=== PATIENT | female | born 1980 | race Two or more races ===

== ENCOUNTER 2022-02-18 11:16 | Inpatient (IN) | payer BC, OTHER ==
[~2022-02-18] VITALS: Ht 162.6 cm; Wt 74.5 kg
[2022-02-18 12:35] LABS: Basophils # (auto) 0 10 ^3/uL (0-0.2); Basophils % (auto) 0.5 % (0.0-2.0); Eosinophils # (auto) 0 10 ^3/uL (0-0.8); Eosinophils % (auto) 0.6 % (0.0-7.0); Hematocrit 36.6 % (36.0-46.0); Hemoglobin 12.4 g/dL (12.2-16.2); Lymphocytes # (auto) 0.7 10 ^3/uL (0.4-5.4); Lymphocytes % (auto) 14.6 % (10.0-50.0); Mean Corpuscular Hemoglobin 33.2 pg (28.0-32.0); Mean Corpuscular Hgb Conc. 33.9 g/dL (32.0-36.0); Mean Corpuscular Volume 97.9 fL (80.0-100.0); Monocytes # (auto) 0.3 10 ^3/uL (0-1.3); Monocytes % (auto) 6.7 % (0.0-12.0); Neutrophils # (auto) 3.7 10 ^3/uL (1.6-8.6); Neutrophils % (auto) 77.6 % (37.0-80.0); Red Blood Cells 3.74 10^6/uL (4.0-5.20); Red Cell Distribution Width 13.7 % (11.8-14.3); White Blood Cell 4.8 10^3/uL (4.4-10.8)
[2022-02-18 12:41] LABS: Albumin 3.7 g/dL (3.4-5.0); BUN/Creatinine Ratio 11.2; Calcium 8.2 mg/dL (8.5-10.1); Magnesium 2.2 mg/dL (1.6-2.6)
[2022-02-18 12:50] LABS: Bilirubin, Total 0.6 mg/dL (0.2-1.0); Total Protein 6.9 g/dL (6.4-8.2)
[2022-02-18 12:54] LABS: Potassium 4.1 mmol/L (3.5-5.1)
[2022-02-18 13:01] LABS: INR 1.1 (0.9-1.15); Partial Thromboplastin Time 29.1 sec (23.6-33.0)
[2022-02-18 13:53] LABS: Alcohol, Urine < 3.0 mg/dL (0-10); Amphetamine Screen, Urine NEGATIVE (NEGATIVE); Barbiturate Scree,Urine NEGATIVE (NEGATIVE); Benzodiazephine Screen, Urine POSITIVE (NEGATIVE); Cannabinoid Screen, Urine NEGATIVE (NEGATIVE); Cocaine Screen, Urine NEGATIVE (NEGATIVE); Opiate Scree,Urine NEGATIVE (NEGATIVE); Phencyclidine Screen, Urine NEGATIVE (NEGATIVE)
[2022-02-18] MEDS ORDERED: LORazepam 2MG/ML-1ML VIAL ONE (15:12)
[2022-02-18] MEDS ORDERED: LORazepam 2MG/ML-1ML VIAL IV ONE ×2 (15:13→15:30)
[2022-02-18] MEDS ORDERED: MORPHINE SULFATE INJECTION 2 MG/ML SYRG IV PRN ×2 (15:15→16:00)
[2022-02-18] MEDS ORDERED: NITROGLYCERIN 0.4 MG SL TAB SL PRN (15:15)
[2022-02-18] MEDS ORDERED: diphenhdrAMINE HCL 50 MG/1 ML VL IV ONE (15:30)
[2022-02-18] MEDS ORDERED: FLECAINIDE ACETATE 50 MG TAB PO ONE (15:45)
[2022-02-18] MEDS ORDERED: ALPRAZolam 0.5 MG TAB PO ONE (15:45)
[2022-02-18] MEDS ORDERED: LACTATED RINGER'S 1,000 ML IV ONE (15:45)
[2022-02-18] MEDS ORDERED: PANTOPRAZOLE 40 MG/10 ML VIAL INJ IV ONE (16:00)
[2022-02-18] MEDS ORDERED: hydrALAZINE HCL 20 MG/ML VL IV PRN (16:00)
[2022-02-18] MEDS ORDERED: LORazepam 0.5 MG TAB PO PRN (16:00)
[2022-02-18] MEDS ORDERED: FOLIC ACID 1 MG TAB PO ONE (16:00)
[2022-02-18] MEDS ORDERED: FERROUS SULFATE 325mg EC TAB PO ONE (16:00)
[2022-02-18] MEDS ORDERED: DOCUSATE SOD 100 MG CAP PO PRN (16:00)
[2022-02-18] MEDS ORDERED: IPRATROPIUM BROM 0.5 MG/2.5ML INH SOL NEB ONE (16:00)
[2022-02-18] MEDS ORDERED: HYDROcodone-ACET 5/325MG TAB PO ONE (16:00)
[2022-02-18] MEDS ORDERED: SUCRALFATE 1 GM/10 ML ORAL SUSP PO ONE (16:00)
[2022-02-18] MEDS ORDERED: MULTIPLE VITAMINS W/ MINERALS TAB PO ONE (16:00)
[2022-02-18] MEDS ORDERED: LACTULOSE 20Gm/30ML SOLN PO PRN (16:00)
[2022-02-18] MEDS ORDERED: ONDANSETRON HCL 4 MG/2 ML VIAL IV PRN (16:00)
[2022-02-18] MEDS ORDERED: ENOXAPARIN SOD 80 MG/0.8ML SYRINGE SC ONE (16:30)
[2022-02-18] MEDS: SODIUM CHLORIDE 0.9% 1,000 ML IV SCH (17:20)
[2022-02-18 18:00] VITALS: BP 128/79
[2022-02-18] MEDS ORDERED: IPRATROPIUM BROM 0.5 MG/2.5ML INH SOL NEB SCH (18:00)
[2022-02-18 19:30] LABS: Magnesium 2.3 mg/dL (1.6-2.6); Phosphorus 2.4 mg/dL (2.5-4.90)
[2022-02-18] MEDS: SUCRALFATE 1 GM/10 ML ORAL SUSP PO SCH (21:36)
[2022-02-18] MEDS: POTASSIUM CHL 20 Meq TABLET PO SCH (21:36)
[2022-02-18] MEDS: ENOXAPARIN SOD 80 MG/0.8ML SYRINGE SC SCH (21:37)
[2022-02-18] MEDS: ATORVASTATIN 20 MG TAB PO SCH (21:37)
[2022-02-18 22:00] VITALS: BP 107/65
[2022-02-19] VITALS (7 sets, daily range): BP systolic 92–101; BP diastolic 46–65
[2022-02-19 06:40] LABS: Basophils # (auto) 0 10 ^3/uL (0-0.2); Basophils % (auto) 1.1 % (0.0-2.0); Eosinophils # (auto) 0 10 ^3/uL (0-0.8); Eosinophils % (auto) 1.1 % (0.0-7.0); Hematocrit 33.8 % (36.0-46.0); Hemoglobin 11.8 g/dL (12.2-16.2); Lymphocytes # (auto) 1.6 10 ^3/uL (0.4-5.4); Lymphocytes % (auto) 49.6 % (10.0-50.0); Mean Corpuscular Hemoglobin 33.9 pg (28.0-32.0); Mean Corpuscular Hgb Conc. 34.9 g/dL (32.0-36.0); Mean Corpuscular Volume 97.1 fL (80.0-100.0); Monocytes # (auto) 0.3 10 ^3/uL (0-1.3); Monocytes % (auto) 10.5 % (0.0-12.0); Neutrophils # (auto) 1.2 10 ^3/uL (1.6-8.6); Neutrophils % (auto) 37.7 % (37.0-80.0); Nucleated Red Blood Cells % 0.1 %; Red Blood Cells 3.48 10^6/uL (4.0-5.20); Red Cell Distribution Width 13.8 % (11.8-14.3); White Blood Cell 3.1 10^3/uL (4.4-10.8)
[2022-02-19] MEDS: SUCRALFATE 1 GM/10 ML ORAL SUSP PO SCH ×4 (07:21→22:29)
[2022-02-19 07:22] LABS: Albumin 3.1 g/dL (3.4-5.0); BUN/Creatinine Ratio 12.3; Bilirubin, Total 0.7 mg/dL (0.2-1.0); CRP High Sensitivity 0.05 mg/dL (< 0.3); Calcium 7.7 mg/dL (8.5-10.1); Magnesium 2.4 mg/dL (1.6-2.6); Phosphorus 2.9 mg/dL (2.5-4.90); Total Protein 6.2 g/dL (6.4-8.2); Uric Acid 3.8 mg/dL (2.6-6.0)
[2022-02-19 07:26] LABS: INR 1.13 (0.9-1.15); Partial Thromboplastin Time 36.3 sec (23.6-33.0)
[2022-02-19] MEDS: FERROUS SULFATE 325mg EC TAB PO SCH ×3 (08:00→17:05)
[2022-02-19] MEDS: SODIUM CHLORIDE 0.9% 1,000 ML IV SCH ×2 (08:41→12:33)
[2022-02-19] MEDS: PANTOPRAZOLE 40 MG/10 ML VIAL INJ IV SCH (08:41)
[2022-02-19] MEDS: POTASSIUM CHL 20 Meq TABLET PO SCH ×2 (08:42→22:30)
[2022-02-19] MEDS: ASPirin 81 mg TAB PO SCH (08:42)
[2022-02-19] MEDS: CHOLECALCIFEROL (VITD3) 2,000 UNIT CAP/TAB PO SCH (08:43)
[2022-02-19] MEDS: CYANOCOBALAMIN 500 MCG TAB PO SCH (08:43)
[2022-02-19] MEDS: MULTIPLE VITAMINS W/ MINERALS TAB PO SCH (08:43)
[2022-02-19] MEDS: ENOXAPARIN SOD 80 MG/0.8ML SYRINGE SC SCH ×2 (08:44→22:33)
[2022-02-19] MEDS: FOLIC ACID 1 MG TAB PO SCH (08:47)
[2022-02-19] MEDS: LORazepam 2MG/ML-1ML VIAL IV PRN ×2 (09:48→22:33)
[2022-02-19] MEDS ORDERED: FLECAINIDE ACETATE 50 MG TAB PO SCH (10:00)
[2022-02-19] MEDS ORDERED: IPRATROPIUM BROM 0.5 MG/2.5ML INH SOL NEB PRN (10:45)
[2022-02-19] MEDS: METOPROLOL TARTRATE 25 MG TAB PO SCH ×2 (12:34→22:32)
[2022-02-19] MEDS: ATORVASTATIN 20 MG TAB PO SCH (22:31)
[2022-02-19] MEDS: HYDROcodone-ACET 5/325MG TAB PO PRN (22:54)
[2022-02-20] MEDS ORDERED: ALBUMIN 5% 250 ML IV ONE (02:45)
[2022-02-20 05:00] VITALS: BP 87/48
[2022-02-20 06:15] LABS: Basophils # (auto) 0 10 ^3/uL (0-0.2); Eosinophils # (auto) 0.1 10 ^3/uL (0-0.8); Eosinophils % (auto) 1.8 % (0.0-7.0); Hematocrit 34.1 % (36.0-46.0); Hemoglobin 11.8 g/dL (12.2-16.2); Lymphocytes # (auto) 1.4 10 ^3/uL (0.4-5.4); Lymphocytes % (auto) 43.4 % (10.0-50.0); Mean Corpuscular Hemoglobin 33.8 pg (28.0-32.0); Mean Corpuscular Hgb Conc. 34.6 g/dL (32.0-36.0); Mean Corpuscular Volume 97.6 fL (80.0-100.0); Monocytes # (auto) 0.4 10 ^3/uL (0-1.3); Monocytes % (auto) 11.9 % (0.0-12.0); Neutrophils # (auto) 1.3 10 ^3/uL (1.6-8.6); Neutrophils % (auto) 41.9 % (37.0-80.0); Red Cell Distribution Width 13.5 % (11.8-14.3); White Blood Cell 3.2 10^3/uL (4.4-10.8)
[2022-02-20 06:28] LABS: INR 1.1 (0.9-1.15); Partial Thromboplastin Time 33.6 sec (23.6-33.0)
[2022-02-20] MEDS: SUCRALFATE 1 GM/10 ML ORAL SUSP PO SCH (06:33)
[2022-02-20 06:46] LABS: Albumin 3.4 g/dL (3.4-5.0); BUN/Creatinine Ratio 10.3; Bilirubin, Total 0.6 mg/dL (0.2-1.0); Calcium 8.1 mg/dL (8.5-10.1); Magnesium 2.2 mg/dL (1.6-2.6); Total Protein 6.4 g/dL (6.4-8.2)
[2022-02-20 09:00] VITALS: BP 91/47
[2022-02-20] MEDS ORDERED: ADENOSINE 63 MG in GIVE UN-DILUTED 0 ML IV STA (09:00)
[2022-02-20 09:41] VITALS: BP 111/71
[2022-02-20] MEDS: METOPROLOL TARTRATE 25 MG TAB PO SCH ×2 (10:00→21:53)
[2022-02-20] MEDS: POTASSIUM CHL 20 Meq TABLET PO SCH (10:34)
[2022-02-20] MEDS: ASPirin 81 mg TAB PO SCH (10:34)
[2022-02-20] MEDS: FOLIC ACID 1 MG TAB PO SCH (10:34)
[2022-02-20] MEDS: PANTOPRAZOLE 40 MG/10 ML VIAL INJ IV SCH (10:34)
[2022-02-20] MEDS: FERROUS SULFATE 325mg EC TAB PO SCH (10:34)
[2022-02-20] MEDS: MULTIPLE VITAMINS W/ MINERALS TAB PO SCH (10:35)
[2022-02-20] MEDS: DIGOXIN 0.25 MG TAB PO SCH (10:35)
[2022-02-20] MEDS: CYANOCOBALAMIN 500 MCG TAB PO SCH (10:36)
[2022-02-20] MEDS: FLECAINIDE ACETATE 50 MG TAB PO SCH ×2 (10:36→22:05)
[2022-02-20] MEDS: ENOXAPARIN SOD 80 MG/0.8ML SYRINGE SC SCH ×2 (10:36→21:56)
[2022-02-20] MEDS: CHOLECALCIFEROL (VITD3) 2,000 UNIT CAP/TAB PO SCH (10:36)
[2022-02-20] MEDS: HYDROcodone-ACET 5/325MG TAB PO PRN (10:47)
[2022-02-20] MEDS ORDERED: LORazepam 0.5 MG TAB PO PRN (11:00)
[2022-02-20 13:00] VITALS: BP 100/59
[2022-02-20 17:00] VITALS: BP_SYST 43
[2022-02-20 22:00] VITALS: BP 101/64
[2022-02-20] MEDS ORDERED: ATORVASTATIN 20 MG TAB PO SCH (22:00)
[2022-02-21 05:00] VITALS: BP 93/43
[2022-02-21 06:18] LABS: Magnesium 2.2 mg/dL (1.6-2.6)
[2022-02-21 08:00] VITALS: BP 96/51
[2022-02-21] MEDS ORDERED: DIGO0.25 PO (10:25)
[2022-02-21] MEDS ORDERED: FLE50T PO (10:25)
[2022-02-21] MEDS ORDERED: MET25T PO (10:25)
[2022-02-21] MEDS ORDERED: ASPI1CHW15 PO (10:25)
[2022-02-21] MEDS: ASPirin 81 mg TAB PO SCH (10:27)
[2022-02-21] MEDS: DIGOXIN 0.25 MG TAB PO SCH (10:28)
[2022-02-21] MEDS: ENOXAPARIN SOD 80 MG/0.8ML SYRINGE SC SCH (10:29)
[2022-02-21] MEDS: FLECAINIDE ACETATE 50 MG TAB PO SCH (10:29)
[2022-02-21] MEDS: METOPROLOL TARTRATE 25 MG TAB PO SCH (10:29)
[2022-02-21] MEDS ORDERED: NITR100C6 PO (10:29)
[2022-02-21] MEDS ORDERED: HYDR-3682 PO (10:29)
[2022-02-21] MEDS: MULTIPLE VITAMINS W/ MINERALS TAB PO SCH (10:29)
[2022-02-21 11:20] VITALS: BP 103/60
[2022-02-21 12:00] VITALS: BP 86/43
== END 2022-02-21 14:40 | disposition home or self-care (01) | DRG 281 ==
LOC: ER 11:16 → EDBD 11:16 → TELE 15:08 → TELE-EAST 17:58
PROVIDERS: ADMIT Hospitalist; ATTEND Internal Medicine
DX: I47.1 Supraventricular tachycardia (principal); I21.A1 Myocardial infarction type 2; N39.0 Urinary tract infection, site not specified; I48.4 Atypical atrial flutter; I49.9 Cardiac arrhythmia, unspecified; I45.6 Pre-excitation syndrome; F41.0 Panic disorder [episodic paroxysmal anxiety]; E03.9 Hypothyroidism, unspecified; E78.5 Hyperlipidemia, unspecified; B96.20 Unspecified Escherichia coli [E. coli] as the cause of diseases classified elsewhere; Z20.822 Contact with and (suspected) exposure to COVID-19; I48.91 Unspecified atrial fibrillation; Z88.8 Allergy status to other drugs, medicaments and biological substances; Z68.28 Body mass index [BMI] 28.0-28.9, adult
CPT/HCPCS: 36415; 70450; 71045; 78452; 80053; 80061; 80162; 80307; 82550; 82728; 83036; 83605; 83615; 83690; 83735; 83880; 84100; 84132; 84439; 84443; 84484; 84550; 84702; 85025; 85379; 85610; 85652; 85730; 86141; 87040; 87086; 87088; 87186; 93005; 93017; 93306; 96361; 96372; 96374; 96375; C9113; G0378; J0153